=== PATIENT | female | born 1990 | race Caucasian/White ===

== ENCOUNTER 2017-02-17 12:14 | Emergency (ER) | payer OTHER ==
[~2017-02-17] VITALS: Ht 157.5 cm; Wt 52.2 kg
--- NOTE | 2017-02-17 12:35 | ED HEADACHE COMPLAINT ---
History of Present Illness General Chief Complaint: Headache Stated Complaint: HEADACHE Source: patient Exam Limitations: no limitations Vital Signs & Intake/Output Vital Signs & Intake/Output Vital Signs Date Time Temp Pulse Resp B/P B/P Pulse O2 O2 Flow FiO2 Mean Ox Delivery Rate 02/17 1350 99.1 81 16 119/82 98 Room Air 02/17 1313 Room Air 02/17 1219 99.3 85 16 111/78 96 Room Air Allergies Coded Allergies: No Known Allergies (02/17/17) Reconcile Medications Butalb/Acetaminophen/Caffeine (Fioricet 50-300-40 MG Capsule) 50 MG-300 MG-40 MG CAPSULE 1 TAB PO TID PRN HEADACHE Ketorolac Tromethamine 10 MG TABLET 1 TAB PO TID PRN HEADACHE Triage Note: PT PASSED OUT AT WORK ON SUNDAY IN THE AFTERNOON PT UNSURE IF SHE HIT HER HEAD. PT HAS PASSED OUT BEFORE PER HER FIANCE BUT THIS TIME SHE HAD A BAD MIGRAIN AND THAT IS WHY SHE PASSED OUT. PT DOES NOT REMEMBER ANYTHING PAST THE POINT OF PASSING OUT. Triage Nurses Notes Reviewed? yes Onset: Gradual Duration: constant Timing: recent history Quality/Severity: moderate, pressure, throbbing Severity Numbers: 6 Head Injury Location: temporal : No Patient currently breastfeeds: No HPI: Patient is a 27-year-old female with a past medical history of HEADACHES AND depression currently unmedicated who presents emergency room with mariam for concerns of headache and syncopal episode. 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 The fiance was called however it is unknown how long the loss of consciousness had occurred. Patient states that she's had a persistent right-sided headache currently complains of moderate throbbing in nature. Patient has taken ibuprofen with no relief of symptoms. She has associated symptoms of dizziness lightheadedness sensation however no syncopal episode has recurred. Patient's had decreased by mouth intake however can't tolerate by mouth denies any nausea or vomiting. Patient does have photophobia. Denies any acute onset or thunderclap headache or worst headache of life currently. (MIKAEL WAHL) Past History Travel History Traveled to [place] past 21 day No Medical History Any Pertinent Medical History? see below for history Psychiatric: depression Surgical History Surgical History: non-contributory Psychosocial History What is your primary language Cuban Tobacco Use: Never used ETOH Use: occasional use Illicit Drug Use: denies illicit drug use Family History Hx Contributory? No (MIKAEL WAHL) Review of Systems Review of Systems Constitutional: Reports: no symptoms. Eyes: Reports: see HPI, photophobia. Denies: blindness. Ears, Nose, Throat, Mouth: Reports: no symptoms. Respiratory: Reports: no symptoms. Cardiovascular: Reports: no symptoms. Gastrointestinal/Abdominal: Reports: no symptoms. Genitourinary: Reports: no symptoms. Musculoskeletal: Reports: no symptoms. Skin: Reports: no symptoms. Neurological/Psychological: Reports: see HPI, headache. Hematologic/Endocrine: Reports: no symptoms. Endocrine: Reports: no symptoms. Immunologic/Allergic: Reports: no symptoms. All Other Systems: Reviewed and Negative (MIKAEL WAHL) Physical Exam Physical Exam General Appearance: no apparent distress, alert, comfortable Cranial Nerves: normal hearing, normal speech, PERRL Comments: Well-developed well-nourished person in no acute distress HEENT: Normal EENT exam, extraocular motion intact, no nystagmus. Pupils equally round and reactive to light and accommodation. Nose is atraumatic. External auditory canal and Tympanic membranes clear. Pharynx normal. No swelling or edema. Neck: Supple, no lymphadenopathy, normal range of motion without pain or tenderness Back: Nontender, no CVA tenderness. Cardiovascular: Regular rate and rhythms no murmurs rubs or gallops, normal JVP Respiratory: Chest nontender. No respiratory distress.breath sounds clear to auscultation bilaterally Abdomen: Soft, nontender nondistended, no appreciable organomegaly. Normal bowel sounds. No ascites Extremity: No edema, no calf tenderness to palpation, normal and equal pulses. Neuro: Alert oriented x3, motor sensory normal, cranial nerves II through XII grossly intact. Negative cerebellar testing Skin: No appreciable rash on exposed skin, skin is warm and dry. Psych: Mood and affect is normal, memory and judgment is normal. Core Measures Severe Sepsis Present: No Septic Shock Present: No (MIKAEL WAHL) Progress Differential Diagnosis: carotid dissection, cav sinus thromb, cluster DOWELL, encephalitis, IC mass/tumor, intracranial Hem., meningitis, migraine DOWELL, musculoskeletal pain, post LP headache, sinusitis, SSS thrombosis, subarach. Hem., tension DOWELL, temporal arteritis, TMJ syndrome, viral cephalgia Plan of Care: Orders Procedure Date/time Status MAGNESIUM 02/17 124 Complete HUMAN BETA HCG SCREEN 02/17 1245 Complete COMPREHENSIVE METABOLIC PANEL 02/17 1245 Complete CBC WITHOUT DIFFERENTIAL 02/17 1245 Complete EKG 02/17 1245 Active Laboratory Tests 02/17/17 1308: Anion Gap 12, Estimated GFR > 60, BUN/Creatinine Ratio 16.3, Glucose 78, Calcium 9.2, Magnesium 1.7, Total Bilirubin 0.7, AST 15, ALT 27, Alkaline Phosphatase 43 , Total Protein 6.8, Albumin 4.3, Globulin 2.5, Albumin/Globulin Ratio 1.7, Total Beta HCG NEGATIVE, CBC w Diff NO MAN DIFF REQ, RBC 4.33, MCV 95.0, MCH 32.2 H, RDW 12.0, MPV 10.9 H, Gran % 52.4, Lymphocytes % 40.1, Monocytes % 5.8 , Eosinophils % 1.4, Basophils % 0.3, Absolute Granulocytes 2.7, Absolute Lymphocytes 2.1, Absolute Monocytes 0.3, Absolute Eosinophils 0.1, Absolute Basophils 0, PUBS MCHC 33.9 On initial examination patient had unremarkable findings and no neurological deficit. CT scan was unremarkable. EKG was normal sinus rhythm. 02/17/2017 1:33:53 PM reevaluation the patient she had improvement of her symptoms. Patient currently is resting comfortably At this time due to history of present illness and exam findings patient was likely to have a vasovagal response due to headache pain complaints that occurred early this week. 02/17/2017 1:47:19 PM patient had all blood work unremarkable. Patient normal steady gait upon discharge. I strongly advised patient to follow up with discharge instructions and plan and she will comply (SOLIS MADRID,MIKAEL) Diagnostic Imaging: Viewed by Me: CT Scan. Radiology Impression: no acute abnormality Initial ED EKG: SINUS RHYTHM NOTED AT 73 BPM Comments: PATIENT: YEMI TOLENTINO PRESENT AGE: 27 PATIENT ACCOUNT NO: [id number] : 88 LOCATION: [facility] ORDERING PHYSICIAN: MIKAEL MADRID SERVICE DATE: 02/17/17 EXAM TYPE: CAT - CT HEAD WO IV CONTRAST EXAMINATION: CT HEAD WITHOUT CONTRAST CLINICAL INFORMATION: 27-year-old woman with syncope and head injury. COMPARISON: None TECHNIQUE: Contiguous axial imaging was performed from the skull base to vertex without intravenous administration of contrast. DLP: 529 mGy-cm FINDINGS: There is no evidence of acute intracranial hemorrhage or territorial infarction. No abnormal mass effect or midline shift is seen. Cerrato to white matter differentiation is well preserved. No extra-axial fluid collections are identified. The ventricles are normal in size. There is no abnormal attenuation within the brain parenchyma. The osseous structures and soft tissues are normal. The mastoid air cells and visualized portions of the paranasal sinuses are well aerated. IMPRESSION: No acute intracranial pathology. DICTATED BY: RASHIDA MORALES MD DATE/TIME DICTATED:02/17/171320 PROPRIETARY TRADER:BABATUNDE (MIKAEL WAHL) Departure Departure Disposition: HOME OR SELF CARE Condition: Stable Clinical Impression Primary Impression: Headache Secondary Impressions: Vasovagal syncope Referrals: PATIENT HAS NO PRIMARY CARE DR (PCP/Family) Additional Instructions: As discussed begin drinking plenty of water for hydration. Begin the prescription and ketorolac for future headaches and begin the prescription of Fioricet for breakthrough headache relief. On Sunday follow-up and establish [facility] practice to establish a doctor for evaluation and treatment. If symptoms worsen return to emergency room. Prescription is waiting at [facility] pharmacy Departure Forms: Customer Survey General Discharge Information Prescriptions: Current Visit Scripts Ketorolac Tromethamine 1 TAB PO TID PRN HEADACHE #15 TAB Butalb/Acetaminophen/Caffeine (Fioricet 50-300-40 MG Capsule) 1 TAB PO TID PRN HEADACHE #15 TAB (MIKAEL WAHL) PA/SENIOR [employer]EL[employer] Co-Sign Statement Statement: ED Attending supervision documentation- [] I saw and evaluated the patient. I have also reviewed all the pertinent lab results and diagnostic results. I agree with the findings and the plan of care as documented in the PA's/SENIOR [employer]EL[employer]'s documentation. [X] I have reviewed the ED Record and agree with the PA's/SENIOR [employer]EL[employer]'s documentation. [] Additions or exceptions (if any) to the PAs/SENIOR [employer]ELOPER's note and plan are summarized below: [] (HÉCTOR PASTOR,LORRI Oneal
--- NOTE | 2017-02-17 13:26 | CT SCAN REPORT ---
EXAMINATION: CT HEAD WITHOUT CONTRAST CLINICAL INFORMATION: 27-year-old woman with syncope and head injury. COMPARISON: None TECHNIQUE: Contiguous axial imaging was performed from the skull base to vertex without intravenous administration of contrast. DLP: 529 mGy-cm FINDINGS: There is no evidence of acute intracranial hemorrhage or territorial infarction. No abnormal mass effect or midline shift is seen. Cerrato to white matter differentiation is well preserved. No extra-axial fluid collections are identified. The ventricles are normal in size. There is no abnormal attenuation within the brain parenchyma. The osseous structures and soft tissues are normal. The mastoid air cells and visualized portions of the paranasal sinuses are well aerated. IMPRESSION: No acute intracranial pathology.
[2017-02-17 13:28] LABS: ABSOLUTE BASOPHIL COUNT 0 /CUMM (0.0-0.2); ABSOLUTE EOSINOPHIL COUNT 0.1 /CUMM (0.0-0.7); ABSOLUTE GRANULOCYTE CT 2.7 /CUMM (1.4-6.5); ABSOLUTE LYMPH COUNT 2.1 /CUMM (1.2-3.4); ABSOLUTE MONOCYTE COUNT 0.3 /CUMM (0.10-0.60); BASOPHIL % 0.3 % (0.0-2.0); EOSINOPHIL % 1.4 % (0-5); GRANULOCYTE % 52.4 % (42.2-75.2); HEMATOCRIT 41.2 % (37-47); MEAN CORPUSCULAR HGB 32.2 PG (27.0-31.0); MEAN CORPUSCULAR HGB CONC 33.9 G/DL (33.0-37.0); MEAN PLATELET VOLUME 10.9 FL (7.4-10.4); PLATELET COUNT 183 /CUMM (130-400); RED BLOOD CELL CT 4.33 /CUMM (4.20-5.40); WHITE BLOOD CELL COUNT 5.2 /CUMM (4.8-10.8)
[2017-02-17] MEDS ORDERED: KETOROLAC TROME10 M1 PO (13:46)
[2017-02-17] MEDS ORDERED: FIORICET 50-301 EACH PO (13:46)
[2017-02-17 13:50] VITALS: BP 119/82
== END 2017-02-17 13:51 ==
LOC: ERH 12:14
PROVIDERS: Physician Assistant
DX: R51 Headache (principal); R55 Syncope and collapse
CPT/HCPCS: 93005; 93010; 96374; J1885